=== PATIENT | male | born 1955 | race Caucasian/White ===

== ENCOUNTER 2017-05-03 05:41 | Day surgery (SDC) | payer BC ==
[2017-05-03] MEDS ORDERED: Ketamine HCl 50 MG/ML IJ ONE (05:42)
[2017-05-03] MEDS ORDERED: DIPRIVAN 200 MG/20 ML IV ONE (05:42)
[2017-05-03] MEDS ORDERED: Lactated Ringers 1,000 ML IV SCH (06:30)
[2017-05-03 08:17] VITALS: PULSE 74
--- NOTE | 2017-05-03 08:20 | OP ---
SURGERY DATE/TIME: 05/03/2017 0711 PREOPERATIVE DIAGNOSIS: History of colon polyps. POSTOPERATIVE DIAGNOSES: 1) Sigmoid diverticulosis. 2) Large sigmoid colon polyp. PROCEDURE: Colonoscopy with polypectomy. SURGEON: Dr. Morales. ANESTHESIA: Medications were given by the anesthesia department. HISTORY: The patient is a 62 year old white male presenting now for polyp surveillance. The patient reports he previously had colonoscopy where polyps were removed. The patient was reappraised of the risks of the procedure including the risk of perforation, phlebitis, untoward reaction to medication, bleeding or missed lesions. The patient verbalized his understanding and desired to have the procedure performed. DESCRIPTION OF PROCEDURE: The patient was given the medications by the anesthesia department. He had continuous pulse oximetry, ECG monitoring, intermittent blood pressure monitoring and tidal CO2 monitoring during the examination. He was placed in left lateral decubitus position. A digital rectal examination was performed and revealed normal anal sphincter tone and no masses and normal prostate. The flexible Olympus pediatric colonoscope was used to intubate the rectum. A view of the colon was developed sequentially to the cecum. Upon insertion and withdrawal, there was noted sigmoid diverticulosis and a large sigmoid colon polyp which was pedunculated, this was removed using polypectomy snare. Basket was used to retrieve the polyp for pathologic evaluation. The size was approximately 1.5 cm in diameter. It was noted that the procedure was somewhat technically difficult getting through the sigmoid colon. Otherwise the patient tolerated the procedure well. Re-inspection of the polypectomy site was obtained for evidence of bleeding. There was no bleeding within this portion of the procedure. The scope was removed from the patient who tolerated the procedure well and was sent back to OP recovery in good condition. The prep was noted to be fair to good.
[2017-05-03 08:57] VITALS: BP 134/91; O2SAT 99
== END 2017-05-03 08:45 | disposition home or self-care (01) ==
LOC: SDC 05:41
PROVIDERS: ATTEND Family Medicine
PROC: 0DBN8ZX Excision of Sigmoid Colon, Via Natural or Artificial Opening Endoscopic, Diagnostic (ICD-10-PCS; principal; 2017-05-03)
DX: Z86.010 Personal history of colon polyps (principal); K57.90 Diverticulosis of intestine, part unspecified, without perforation or abscess without bleeding; K63.5 Polyp of colon; I10 Essential (primary) hypertension
CPT/HCPCS: 00810; 88305; J2704

== ENCOUNTER 2022-07-02 05:42 | Day surgery (SDC) | payer OTHER ==
[2022-07-02] MEDS ORDERED: Lactated Ringers 1,000 ML IV SCH (06:30)
[2022-07-02 06:40] VITALS: O2SAT 97
[2022-07-02] MEDS ORDERED: DIPRIVAN 200 MG/20 ML IV ONE (07:12)
[2022-07-02] MEDS ORDERED: Versed 2 MG/2 ML Injection ONE (07:12)
[2022-07-02 08:29] VITALS: BP 144/87; PULSE 63
--- NOTE | 2022-07-02 09:59 | OP ---
SURGERY DATE/TIME: 07/02/2022 0714 PREOPERATIVE DIAGNOSIS: History of colon polyps. POSTOPERATIVE DIAGNOSIS: Hepatic flexure polyp and sigmoid diverticulosis. PROCEDURE: Colonoscopy with cold forceps biopsy. SURGEON: Dr. Morales. ANESTHESIA: MAC. Medications given by anesthesia department. HISTORY: The patient is a 67-year-old white male patient presenting now for surveillance examination. He had a previous colonoscopy where polyps were removed. The patient was felt to need to have endoscopic evaluation. The patient was appraised of the risks of the procedure including the risk of perforation, phlebitis, untoward reaction to medication, bleeding and missed lesions. The patient verbalized his understanding and desired to have the procedure performed. DESCRIPTION OF PROCEDURE: The patient was given the medications by the anesthesia department. He had continuous pulse oximetry, ECG monitoring and intermittent blood pressure monitoring during the examination. He was placed in the left lateral decubitus position. A digital rectal examination was performed and revealed normal anal sphincter tone, no masses and normal prostate. The flexible Olympus pediatric colonoscope was used to intubate the rectum. A view of the colon was developed sequentially to the cecum. Upon insertion and withdrawal was noted a small hepatic flexure polyp measuring approximately 0.7 cm in size which was destroyed using multiple passes with cold forceps biopsy tool. Upon insertion and withdrawal was noted to be almost sigmoid diverticulosis. No other mucosal lesions were encountered. The scope was removed from the patient who tolerated the procedure well and was sent back to OP recovery in good condition. The prep was noted to be fair to good.
== END 2022-07-02 08:40 | disposition home or self-care (01) ==
LOC: SDC 05:42
PROVIDERS: ATTEND Family Medicine
DX: Z09 Encounter for follow-up examination after completed treatment for conditions other than malignant neoplasm (principal); Z86.010 Personal history of colon polyps; K57.30 Diverticulosis of large intestine without perforation or abscess without bleeding; D12.3 Benign neoplasm of transverse colon
CPT/HCPCS: J2250; J2704